=== PATIENT | male | born 1965 | race Two or more races ===

== ENCOUNTER 2018-05-12 17:38 | Emergency (ER) | payer OTHER ==
[~2018-05-12] VITALS: Ht 182.9 cm; Wt 81.6 kg
== END 2018-05-12 21:17 | disposition home or self-care (01) ==
LOC: ER 17:38
DX: I16.0 Hypertensive urgency (principal); I10 Essential (primary) hypertension

== ENCOUNTER → 2018-06-02 | Emergency (ER) | payer OTHER ==
[~2018-06-02] VITALS: Ht 175.3 cm; Wt 84.4 kg
[~2018-06-02] MED LIST: NORVASC2.5 M1 PO
== END | disposition left against medical advice (07) ==
LOC: ER 08:23
DX: Z53.20 Procedure and treatment not carried out because of patient's decision for unspecified reasons (principal)

== ENCOUNTER 2021-09-04 10:35 | Emergency (ER) | payer OTHER ==
[~2021-09-04] VITALS: Ht 180.3 cm; Wt 79.4 kg
[2021-09-04] MEDS ORDERED: COZAAR25 MG (10:56)
== END 2021-09-04 12:00 | disposition home or self-care (01) ==
LOC: ER 10:35
DX: S61.452A Open bite of left hand, initial encounter (principal); L03.114 Cellulitis of left upper limb; W54.0XXA Bitten by dog, initial encounter; Y93.9 Activity, unspecified; Y92.019 Unspecified place in single-family (private) house as the place of occurrence of the external cause

== ENCOUNTER 2022-12-13 07:25 | Emergency (ER) | payer OTHER ==
[~2022-12-13] VITALS: Ht 180.3 cm; Wt 79.4 kg
[~2022-12-13 07:25] MED LIST changes: +COZAAR25 MG
== END 2022-12-13 09:31 | disposition home or self-care (01) ==
LOC: ER 07:25
DX: S61.257A Open bite of left little finger without damage to nail, initial encounter (principal); W54.0XXA Bitten by dog, initial encounter; Y93.89 Activity, other specified; Y92.098 Other place in other non-institutional residence as the place of occurrence of the external cause; Y99.8 Other external cause status; I10 Essential (primary) hypertension

== ENCOUNTER 2023-02-25 08:40 | Emergency (ER) | payer OTHER ==
[~2023-02-25] VITALS: Ht 180.3 cm; Wt 79.4 kg
[2023-02-25] MEDS ORDERED: CELEBREX200MG PO (11:17)
[2023-02-25] MEDS ORDERED: NORFLEX100MG PO (11:17)
== END 2023-02-25 11:35 | disposition home or self-care (01) ==
LOC: ER
DX: S33.5XXA Sprain of ligaments of lumbar spine, initial encounter (principal); X58.XXXA Exposure to other specified factors, initial encounter; Y93.89 Activity, other specified; Y92.89 Other specified places as the place of occurrence of the external cause; Y99.8 Other external cause status; G56.02 Carpal tunnel syndrome, left upper limb; I10 Essential (primary) hypertension